=== PATIENT | female | born 1945 | race Caucasian/White ===

== ENCOUNTER 2017-10-22 16:18 | Observation (INO) ==
[2017-10-22] MEDS ORDERED: 0.9 % SODIUM CHLORIDE 1,000 ML IV ONE ×2 (16:36→18:13)
--- NOTE | 2017-10-22 16:40 | Emergency Department Note ---
Weakness HPI - General Chief complaint: Weakness Stated complaint: body aches, weak Time Seen by Provider: 10/22/17 16:20 Source: patient Mode of arrival: ambulatory Limitations: no limitations - History of Present Illness HPI Narrative: 72-year-old female presents with worsening weakness. She is being treated for urinary tract infection and pneumonia with Levaquin. She was seen at [facility] on 10/19. She had been having fevers of 103 previously and states that the fevers are gone. She states that she has worsening weakness but is able to get up and out of bed today. She is trying to drink fluids but feels dry because her mouth is very dry. She also has not been taking her medications because she has been sick and had a lower blood pressure today. She was told by her PCP to be seen. She denies any chest pain but feels like she cannot get a deep breath. She did not know she had pneumonia until she had a CT of her abdomen which picked it up. She denies any abdominal pain or urinary symptoms at this time. She states her only symptom that she had was a fever. She states she gets winded when trying to walk from point a to B. She is not eating much and she is diabetic but her blood sugars have been running in the 130s. She has not been taking her metformin. She vomited once prior to going to [facility] but has not vomited since. No diarrhea. She states the medication is her stomach ache. - Related Data Home Medications Medication Instructions Recorded Confirmed aspirin 81 mg tablet,delayed 81 mg PO QDAY 06/28/15 10/22/17 release hydroxychloroquine 200 mg tablet 400 mg PO HS tab 06/28/15 10/22/17 magnesium oxide 400 mg tablet 400 mg PO HS tab 06/28/15 10/22/17 metformin 500 mg tablet 500 mg PO BID 07/20/17 10/22/17 Atorvastatin [Lipitor] 5 mg PO HS 10/12/17 10/22/17 Potassium Chloride [K-Tab ER] 20 meq PO HS 10/12/17 10/22/17 cycloSPORINE [Restasis] 1 each OU BID 10/12/17 10/22/17 Blood Sugar Diagnostic [Contour] 0 unit MISC .MEDSUPPLY 10/22/17 10/22/17 Blood-Glucose Meter [Contour] 0 unit MISC .MEDSUPPLY 10/22/17 10/22/17 Previous Rx's Medication Instructions Recorded carvedilol 6.25 mg tablet 6.25 mg PO BID #180 tab 12/16/16 sertraline 50 mg tablet 50 mg PO DAILY #90 tab 12/16/16 omeprazole 20 mg capsule,delayed 20 mg PO QDAY #90 cap 05/05/17 release alprazolam 1 mg tablet 0.5 mg PO QHS #45 tab 07/14/17 hydrochlorothiazide 50 mg tablet 25 mg PO QDAY #1 tab 10/04/17 losartan 100 mg tablet 100 mg PO QDAY #90 tab 10/04/17 levofloxacin 750 mg tablet 750 mg PO Q24H 5 Days #5 tab 10/19/17 Allergies Allergy/AdvReac Type Severity Reaction Status Date / Time Sulfa (Sulfonamide AdvReac Mild Nausea/Vomi Verified 10/22/17 16:19 Antibiotics) ting Review of Systems All systems ED: reviewed and negative except as stated. Past Medical History - Past Medical History Medical history: Reports: arthritis, DM, hypertension Psychiatric history: Reports: no psych history [employer]IST history: Reports: non-contributory Surgical history ED: Reports: non-contributory Family history: Reports: non-contributory - Social History smoking status: Never smoker Physical Exam Limitations: no limitations General appearance: alert, in no apparent distress Head: atraumatic Eye: Present: normal appearance. Absent: conjunctival injection Neck: Present: normal inspection, full ROM Chest: Present: normal inspection, symmetric chest wall rise Respiratory: Present: other (Mild decreased right middle and lower lobe). Absent: wheezes Cardiovascular: Present: regular rate, normal heart sounds Abdominal: Present: soft, normal bowel sounds. Absent: tenderness Extremities: Present: normal inspection, full ROM Neurological: Present: alert, oriented X3 Psychiatric: Present: normal affect, normal mood Skin: Present: warm, dry, intact Course Vital Signs Temperature 98.0 F 10/22/17 16:19 Pulse Rate 80 10/22/17 16:19 Respiratory Rate 16 10/22/17 16:19 Blood Pressure 126/73 10/22/17 16:19 Pulse Oximetry (%) 98 10/22/17 16:19 Temperature 98.0 F 10/22/17 16:19 Pulse Rate 66 10/22/17 19:31 Respiratory Rate 18 10/22/17 19:31 Blood Pressure 151/64 10/22/17 19:31 Pulse Oximetry (%) 98 10/22/17 19:31 Weakness - MDM Narrative Medical decision making narrative: Potassium 2.9. She is been given 20 mEq potassium p.o. and 20 mEq IV. - Lab Data Lab results reviewed: Yes I reviewed the patient's lab results. Result diagrams: 10/22/17 16:43 10/22/17 16:43 Lab Results 10/22/17 10/22/17 10/22/17 Range/Units 16:43 16:43 16:43 WBC 5.9 (4.5-11.0) K/mcL RBC 3.94 L (4.00-5.20) M/mcL Hgb 11.5 L (12.0-15.0) g/dL Hct 33.8 L (36.0-48.0) % MCV 85.6 (80.0-100.0) fL MCH 29.2 (26.0-34.0) pg MCHC 34.1 (31.0-36.0) g/dL RDW 13.2 (11.5-14.5) % Plt Count 292 (140-440) K/mcL MPV 9.0 (7.4-10.4) fL Total Counted 100 Seg Neutrophils % 61 (38-78) % Band Neutrophils % 4 (0-10) % Lymphocytes % 23 (15-49) % Monocytes % (Manual) 10 (1-12) % Eosinophils % (Manual) 2 (0-7) % Platelet Estimate Normal (NORMAL) RBC Morphology Normal (NORMAL) VBG Lactic Acid 1.6 (0.5-2.2) mmol/L Sodium 133 (133-145) mmol/L Potassium 2.9 L* (3.3-5.1) mmol/L Chloride 94 L (96-108) mmol/L Carbon Dioxide 23 (22-30) mmol/L Anion Gap 16.0 (8-16) BUN 13 (8-23) mg/dl Creatinine 0.9 (0.6-1.1) mg/dl GFR Calculation 65 Glucose 147 H (70-105) mg/dL Calcium 9.2 (8.6-10.4) mg/dl Total Bilirubin 0.3 (0.0-1.0) mg/dL AST 76 H (0-37) U/l ALT 92 H (0-40) U/l Alkaline Phosphatase 92 (39-117) U/L Total Protein 6.9 (5.9-8.4) gm/dL Albumin 3.4 (3.2-5.2) gm/dL Globulin 3.5 (2.2-3.7) gm/dL Albumin/Globulin Ratio 1.0 (1.0-2.3) Procalcitonin (<0.10) ng/mL Urine Color Urine Appearance Urine pH (5.0-9.0) Ur Specific Alpine (1.000-1.035) Urine Protein (NEG) mg/dL Urine Glucose (UA) (NEG) mg/dL Urine Ketones (NEG) mg/dL Urine Occult Blood (<0.03) mg/dL Urine Nitrate (NEG) Urine Bilirubin (NEG) mg/dL Urine Urobilinogen (NEG) mg/dL Ur Leukocyte Esterase (NEG) /uL Urine RBC (0-1) /hpf Urine WBC (0-4) /hpf Ur Squamous Epith Cells (0-4) /hpf Urine Bacteria (0) /hpf Ur Culture Indicated? 10/22/17 10/22/17 Range/Units 16:43 17:45 WBC (4.5-11.0) K/mcL RBC (4.00-5.20) M/mcL Hgb (12.0-15.0) g/dL Hct (36.0-48.0) % MCV (80.0-100.0) fL MCH (26.0-34.0) pg MCHC (31.0-36.0) g/dL RDW (11.5-14.5) % Plt Count (140-440) K/mcL MPV (7.4-10.4) fL Total Counted Seg Neutrophils % (38-78) % Band Neutrophils % (0-10) % Lymphocytes % (15-49) % Monocytes % (Manual) (1-12) % Eosinophils % (Manual) (0-7) % Platelet Estimate (NORMAL) RBC Morphology (NORMAL) VBG Lactic Acid (0.5-2.2) mmol/L Sodium (133-145) mmol/L Potassium (3.3-5.1) mmol/L Chloride (96-108) mmol/L Carbon Dioxide (22-30) mmol/L Anion Gap (8-16) BUN (8-23) mg/dl Creatinine (0.6-1.1) mg/dl GFR Calculation Glucose (70-105) mg/dL Calcium (8.6-10.4) mg/dl Total Bilirubin (0.0-1.0) mg/dL AST (0-37) U/l ALT (0-40) U/l Alkaline Phosphatase (39-117) U/L Total Protein (5.9-8.4) gm/dL Albumin (3.2-5.2) gm/dL Globulin (2.2-3.7) gm/dL Albumin/Globulin Ratio (1.0-2.3) Procalcitonin < 0.10 (<0.10) ng/mL Urine Color Yellow Urine Appearance Hazy Urine pH 6.0 (5.0-9.0) Ur Specific Alpine 1.009 (1.000-1.035) Urine Protein Neg (NEG) mg/dL Urine Glucose (UA) Negative (NEG) mg/dL Urine Ketones Neg (NEG) mg/dL Urine Occult Blood 0.03 A (<0.03) mg/dL Urine Nitrate Neg (NEG) Urine Bilirubin Neg (NEG) mg/dL Urine Urobilinogen Neg (NEG) mg/dL Ur Leukocyte Esterase Neg (NEG) /uL Urine RBC 2 H (0-1) /hpf Urine WBC 0 (0-4) /hpf Ur Squamous Epith Cells 3 (0-4) /hpf Urine Bacteria Few A (0) /hpf Ur Culture Indicated? Yes - Radiology Data Radiology results reviewed: Yes I reviewed the patient's radiology results. Possible small infiltrate developing in the posterior right lower lobe. Small hiatal hernia Disposition Pt seen by [facility]/PA only: Yes Clinical Impression: Hypokalemia, Weakness Disposition: Xfer As Outpt/Obs ([facility]) Condition: Fair
--- NOTE | 2017-10-22 17:20 | XRay Report ---
CLINICAL INFORMATION: Cough COMPARISON: 01/11/2006 FINDINGS: Small hiatal hernia is noted. The heart size, the remaining mediastinum and pulmonary vessels are unremarkable. There may be a small infiltrate developing in the posterior right lower lobe There are no effusions. The bones and soft tissues are within normal limits. IMPRESSION: Possible small infiltrate developing in the posterior right lower lobe. Small hiatal hernia Interpreted and Authenticated by: Antonio Lua 10/22/17
[2017-10-22 17:27] LABS: Mean Cell Volume 85.6 fL (80.0-100.0); Mean Corpuscular HGB Conc 34.1 g/dL (31.0-36.0); Mean Corpuscular Hemoglobin 29.2 pg (26.0-34.0); Platelet Count 292 K/mcL (140-440); RBC 3.94 M/mcL (4.00-5.20); Red Cell Distribution Width 13.2 % (11.5-14.5)
[2017-10-22 17:43] LABS: ALT/SGPT 92 U/l (0-40); Albumin 3.4 gm/dL (3.2-5.2); Alkaline Phosphatase 92 U/L (39-117); Blood Urea Nitrogen 13 mg/dl (8-23)
[2017-10-22] MEDS ORDERED: POTASSIUM CHLORIDE 20 MEQ in DEXTROSE 5% IN WATER 250 ML IV ONE (17:46)
[2017-10-22] MEDS ORDERED: POTASSIUM CHLORIDE 20 MEQ TABLET PO ONE (17:47)
[2017-10-22 17:52] LABS: Band Neutrophils % 4 % (0-10); Eosinophils % (Manual) 2 % (0-7); Lymphocytes % 23 % (15-49); Monocytes % (Manual) 10 % (1-12); Platelet Estimate NORMAL (NORMAL); RBC Morphology NORMAL (NORMAL); Segmented Neutrophils % 61 % (38-78)
[2017-10-22] MEDS ORDERED: NITROGLYCERIN 0.4 MG TAB.SUBL SL PRN (18:53)
[2017-10-22 18:57] LABS: Appearance,Urine HAZY; Bacteria,Urine FEW /hpf (0); Bilirubin,Urine NEG (NEG); Color,Urine YELLOW; Glucose,Urine (UA) NEGATIVE (NEG); Leukocyte Esterase,Urine NEG /uL (NEG); Protein,Urine NEG (NEG); Specific Gravity,Urine 1.009 (1.000-1.035); Urine Blood 0.03 mg/dL (<0.03); Urine RBC 2 /hpf (0-1); Urine Squamous Epithelial Cell 3 /hpf (0-4); Urine WBC 0 /hpf (0-4); Urobilinogen,Urine NEG (NEG)
--- NOTE | 2017-10-22 19:00 | Internal Med History&Physical ---
Medical - H&P: HPI Patient information: Note initiated : 10/22/17 at 6:55 pm Service Date, if different from initiated Date: [] Patient: Kenyetta Yuong a 72 y/o F admitted on for body aches, weak. Chief Complaint: [] History of present illness: Ms. Young is a 72 year old F with multiple medical issues presents to the ER today for evaluation of weakness The patient notes she has not been feeling well for over a week now, she notes she came back from [place] and was seen by her ortho surgeon, and soon afterwards felt sick. she admits to having fever with a temperature of 103, chills sweating, weakness malaise, fatigue. She also had some nausea. She admits to having decreased appetite and not have eaten much for the last 1 week. She has not taken oral medications for approximately a week. She thought that she had the flu and therefore had been taking as needed Tylenol and trying to stay hydrated as much as possible but does not think she took in enough fluids. The patient was seen in the urgent care clinic twice, during the second visit I believe on 19 October she was diagnosed with a urinary tract infection, she also had a stat chest abdomen and pelvis CT done which showed that she had right lower lobe pneumonia. She was started on levofloxacin which she started taking the day after. The patient's condition improved after she took antibiotics, her fever subsided however she still felt quite weak. Given her weakness and the fact that she had not taken her medications for a week she called her primary care physician who advised her to come to the ER for further evaluation. In the emergency room patient was hemodynamically stable and afebrile however her labs showed white count of 5.9, hemoglobin 11.5, platelets 292. Sodium 133 , potassium 2.9, chloride 94, bicarbonate 23, BUN 13 creatinine 0.9, glucose 147 , lactic acid was 1.6. Patient had AST of 76 and ALT of 92, alk phos 92, bilirubin 0.3. Pro-calcitonin less than 0.10. Given her weakness and hypokalemia patient was admitted to the hospital for further management. The patient complained about malaise weakness fatigue fever nausea some episodes of vomiting no blood, she had some diarrhea a few days ago which he attributes to IBS-like GI symptoms. She denied any cough, she has chronic GERD- like symptoms, she denied any urinary complaints. She has joint pains from osteoarthritis. Her ua from 10/19 shows ecoli stephenson sensitive CT abdomen pelivs 10/19, neg acute pathology, no diveritculitis but early features could be missed, hiatal hernia. All systems: reviewed and no additional remarkable complaints except as stated ( As per HPI rest negative) Medical - H&P: H Medical history: Medical History (Last Reviewed 10/15/17 @ 13:34 by Kassie Juan DO) Chronic kidney disease, stage III (moderate) (Chronic) Left hip pain (Chronic) Metabolic Syndrome X (Chronic) Obesity (Chronic) Cervical disc disorder, unspecified, mid-cervical region (Chronic) Primary osteoarthritis of hand (Chronic) Spondylosis without myelopathy or radiculopathy, lumbar region (Chronic) Impingement syndrome of right shoulder (Chronic) Dysphagia (Chronic) Vitreous degeneration (Chronic) Cyn vaginitis (Resolved 01/27/13) Urinary urgency (Chronic 09/14/12) Stress reaction (Chronic 08/14/12) Sicca syndrome, Sjogren's (Chronic) Sedimentation rate elevation (Chronic 08/09/13) Rotator cuff syndrome of shoulder and allied disorders (Chronic) Polyarthropathy, inflammatory (Chronic) Pancreatitis (Resolved) Osteopenia (Chronic) Osteoarthritis cervical spine (Chronic) Osteoarthritis (Chronic) Nuclear sclerosis (Chronic) Myoclonus (Chronic) Metabolic syndrome X (Chronic) Keratoconjunctivitis sicca not specified as Sjogren's (Chronic) Irritable bowel syndrome (Chronic) Insomnia (Chronic) Hypertension, essential (Chronic) Hyperlipidemia (Chronic) Hyperkalemia (Chronic) Hiatal hernia (Chronic) Greater trochanteric bursitis of both hips (Chronic 08/14/14) Gastroesophageal reflux (Chronic) Gastroenteritis (Chronic 04/04/14) Stress due to family tension (Chronic) Dupuytrens contracture (Chronic) Diverticulitis of colon (Chronic) Acquired dilation of common bile duct (Chronic) DM type 2 (diabetes mellitus, type 2) (Chronic) Depression (Chronic 07/28/13) Dehydration (Resolved 04/04/14) Degenerative joint disease (Chronic) Degeneration, intervertebral disc, thoracolumbar (Chronic) Colon polyp (Chronic 04/27/14) Chronic kidney disease, stage III (moderate) (Chronic) Blepharitis (Resolved) Arthropathy, unspecified (Chronic) Anemia (Chronic 03/15/14) Acute frontal sinusitis (Resolved 08/14/14) Surgical history: Past Surgical History (Last Reviewed 07/20/17 @ 15:09 by Angela Jacobs MD) Hx of tubal ligation (Resolved) Hx of ovarian cystectomy (Resolved) Hx of esophagogastroduodenoscopy (Resolved 03/20/14) Hx of dilation and curettage (Resolved) Hx of colonoscopy (Resolved 04/27/14) Hx of cholecystectomy (Resolved) Hx of blepharoplasty (Resolved) Status post surgery (Resolved 02/20/13) Hx of appendectomy (Resolved) History of cataract surgery (Resolved ~06/2017) Pertinent family history: Family History (Last Reviewed 07/20/17 @ 15:09 by Angela Jacobs MD) Grandmother-paternal Acute myocardial infarction Father Coronary artery disease Other Diabetes mellitus Medical - H&P: Meds Home Medications Medication Instructions Recorded Confirmed Type aspirin 81 mg tablet,delayed 81 mg PO QDAY 06/28/15 10/15/17 History release coenzyme Q10 300 mg capsule 300 mg PO QDAY 06/28/15 10/15/17 History hydroxychloroquine 200 mg tablet 400 mg PO HS tab 06/28/15 10/15/17 History magnesium oxide 400 mg tablet 400 mg PO HS tab 06/28/15 10/15/17 History blood sugar diagnostic strips See Dose Instructions .ROUTE 06/09/16 10/15/17 Rx .MEDSUPPLY #100 each blood-glucose meter kit See Dose Instructions .ROUTE 06/09/16 10/15/17 Rx .MEDSUPPLY #1 each carvedilol 6.25 mg tablet 6.25 mg PO BID #180 tab 12/16/16 10/15/17 Rx sertraline 50 mg tablet 50 mg PO DAILY #90 tab 12/16/16 10/15/17 Rx omeprazole 20 mg capsule,delayed 20 mg PO QDAY #90 cap 05/05/17 10/15/17 Rx release alprazolam 1 mg tablet 0.5 mg PO QHS #45 tab 07/14/17 10/15/17 Rx metformin 500 mg tablet 500 mg PO BID 07/20/17 10/15/17 History hydrochlorothiazide 50 mg tablet 25 mg PO QDAY #1 tab 10/04/17 10/15/17 Rx losartan 100 mg tablet 100 mg PO QDAY #90 tab 10/04/17 10/15/17 Rx Atorvastatin [Lipitor] 5 mg PO HS 10/12/17 10/15/17 History Multivit-Min/Iron/Folic/[id number] 2 each PO DAILY 10/12/17 10/15/17 History [Hair, Skin and Nails Tablet] Potassium Chloride [K-Tab ER] 20 meq PO HS 10/12/17 10/15/17 History cycloSPORINE [Restasis] 1 each OU BID 10/12/17 10/15/17 History levofloxacin 750 mg tablet 750 mg PO Q24H 5 Days #5 tab 10/19/17 Rx Allergies Allergy/AdvReac Type Severity Reaction Status Date / Time Sulfa (Sulfonamide AdvReac Mild Nausea/Vomi Verified 10/22/17 16:19 Antibiotics) ting Medical - H&P: Exam - Constitutional Vitals: Temp Pulse Resp BP Pulse Ox 98.0 F 66 20 157/66 99 10/22/17 16:19 10/22/17 18:46 10/22/17 18:46 10/22/17 18:46 10/22/17 18:46 Exam: GENERAL: The patient is a well-developed, well-nourished in no apparent distress. Is alert and oriented x3. VITAL SIGNS: Reviewed and as noted elsewhere. HEENT: Head is normocephalic and atraumatic. Extraocular muscles are intact. Pupils are equal, round, and reactive to light. Nares appeared normal. Mouth appears any without lesions. Mucous membranes are moist. NECK: Normal to inspection, Supple, No lymphadenopathy or thyromegaly. LUNGS: Air entry equal on both sides, no wheezing, right basilar crackles noted. No accessory muscles of respiration HEART: Regular rate and rhythm normal, S1 and S2 heard, no Gallop, S3 or Rub Noted, No Gross murmur heard. ABDOMEN: Soft, nontender, and nondistended. Positive bowel sounds. No hepatosplenomegaly was noted. EXTREMITIES: No cyanosis, clubbing, rash, lesions or edema. NEUROLOGIC: Cranial nerves II through XII are grossly intact. Motor and Sensory System Grossly Intact PSYCHIATRIC: Normal affect, Normal Mood. Appropriate Behavior. SKIN: No ulceration or wounds noted, No jaundice, No rash noted. Medical - H&P: Reslt - Labs CBC & Chem 7: 10/22/17 16:43 10/22/17 16:43 Labs: Short CBC 10/22/17 Range/Units 16:43 WBC 5.9 (4.5-11.0) K/mcL Hgb 11.5 L (12.0-15.0) g/dL Hct 33.8 L (36.0-48.0) % Plt Count 292 (140-440) K/mcL BMP 10/22/17 16:43 Sodium 133 Potassium 2.9 L* Chloride 94 L Carbon Dioxide 23 BUN 13 Creatinine 0.9 Glucose 147 H Calcium 9.2 Liver Function 10/22/17 Range/Units 16:43 Total Bilirubin 0.3 (0.0-1.0) mg/dL AST 76 H (0-37) U/l ALT 92 H (0-40) U/l Alkaline Phosphatase 92 (39-117) U/L Albumin 3.4 (3.2-5.2) gm/dL Medical - H&P: A/P - Narrative A/P Narrative: A/P Pneumonia, CAP, ? aspirational given hiatal hernia Urinary tract infection, Ecoli, pansensitive Hypokalemia Diabetes Hypertension sjogren syndrome depression Osteoarthritis Plan ADmit to tele, obs status, anticipate d/c in 2 days IV levofloxacin to continue for UTi and pna, pt clinically seems to be improving hypokalemia, likely due to poor intake, did not take hctz it seems, previous K levels were ok, check Mg, replace oral and IV, recheck in AM SSI for glucose control resume home meds as appropriate when verified. DVT hep sq Diet Diabetic, Full code. Social History - Social History household members: spouse housing: house lives independently: Yes marital status: education level: college occupational status: employed occupation: teacher - Tobacco smoking status: Never smoker - Alcohol alcohol intake frequency: holiday/special occasion only
[2017-10-22] MEDS ORDERED: HYDROcodone/APAP 5/325MG TABLET PO PRN (19:43)
[2017-10-22] MEDS ORDERED: DEXTROSE 31 GM ORAL.SUSP PO PRN (19:43)
[2017-10-22] MEDS ORDERED: DEXTROSE 50% 50 ML VIAL IV PRN (19:43)
[2017-10-22] MEDS ORDERED: POTASSIUM CHLORIDE 40 MEQ in DEXTROSE 5% IN WATER 500 ML IV ONE (19:43)
[2017-10-22] MEDS ORDERED: ACETAMINOPHEN 325 MG TABLET PO PRN (19:43)
[2017-10-22] MEDS ORDERED: ONDANSETRON 4 MG/2 ML VIAL IV PRN (19:43)
[2017-10-22] MEDS ORDERED: LEVOFLOXACIN 750 MG/150 ML BAG IV SCH (19:43)
[2017-10-22] MEDS: LACTATED RINGERS 1,000 ML IV SCH (20:41)
[2017-10-22] MEDS ORDERED: POTASSIUM CHLORIDE 20 MEQ/10 ML VIAL IV ONE (21:32)
[2017-10-22] MEDS: INSULIN LISPRO 1 UNIT/0.01 ML UNIT SQ SCH (22:31)
[2017-10-22] MEDS: 0.9 % SODIUM CHLORIDE 10 ML SYRINGE IV SCH (22:32)
[2017-10-22] MEDS: HEPARIN 5,000 UNIT/ML VIAL SQ SCH (23:01)
[2017-10-22] MEDS: FAMOTIDINE/PF 20 MG/2 ML VIAL IV SCH (23:01)
[2017-10-23 05:52] LABS: Basophils # (Auto) 0 K/mcL (0.0-0.3); Basophils % (Auto) 0.3 % (0.0-2.0); Eosinophils # (Auto) 0.1 K/mcL (0.0-0.7); Eosinophils % (Auto) 1.8 % (0.0-7.0); Granulocytes % (Auto) 67.6 % (38.0-78.0); Lymphocytes # (Auto) 0.9 K/mcL (1.5-4.8); Lymphocytes % (Auto) 17.7 % (15.5-49.0); Mean Cell Volume 86.4 fL (80.0-100.0); Mean Corpuscular HGB Conc 34.1 g/dL (31.0-36.0); Mean Corpuscular Hemoglobin 29.4 pg (26.0-34.0); Monocytes # (Auto) 0.7 K/mcL (0.1-0.9); Monocytes % (Auto) 12.6 % (1.0-12.0); Platelet Count 265 K/mcL (140-440); RBC 3.45 M/mcL (4.00-5.20); Red Cell Distribution Width 12.8 % (11.5-14.5)
[2017-10-23 06:09] LABS: ALT/SGPT 72 U/l (0-40); Albumin 2.9 gm/dL (3.2-5.2); Alkaline Phosphatase 75 U/L (39-117); Bilirubin,Direct < 0.2 mg/dL (0.0-0.3); Blood Urea Nitrogen 9 mg/dl (8-23); Gamma Glutamyl Transpeptidase 25 U/L (5-36); Uric Acid 4.9 mg/dL (2.5-8.0)
[2017-10-23] MEDS: INSULIN LISPRO 1 UNIT/0.01 ML UNIT SQ SCH ×2 (08:03→11:56)
[2017-10-23] MEDS: FAMOTIDINE/PF 20 MG/2 ML VIAL IV SCH (08:05)
[2017-10-23] MEDS: HEPARIN 5,000 UNIT/ML VIAL SQ SCH (08:06)
[2017-10-23] MEDS: 0.9 % SODIUM CHLORIDE 10 ML SYRINGE IV SCH (08:06)
--- NOTE | 2017-10-23 11:03 | Discharge Summary ---
Medical - DS: Prov Patient information: Note initiated : 10/23/17 at 10:59 am Service Date, if different from initiated Date: [] Patient: Kenyetta Young 72 y/o F admitted on 10/22/17 for body aches, weak. Chief Complaint: [] Date of admission: 10/22/17 19:40 Discharge date: 10/23/17 Primary care physician: Nicholas Mayfield Admitting clinician: Beau Taylor Consults: 10/22/17 18:19 Consult to Physician [CONS] Stat Comment: Consulting Provider: Beau Taylor Reason For Exam: Physician to Consult Discharging clinician: Beau Taylor Medical - DS: Meds - Discharge Medications Active and Home Medications: Home Medications aspirin 81 mg tablet,delayed release 81 mg PO QDAY 06/28/15 [History Confirmed 10/22/17 Last Taken 10/10/17] hydroxychloroquine 200 mg tablet 400 mg PO HS tab 06/28/15 [History Confirmed 10/22/17 Last Taken Unknown] magnesium oxide 400 mg tablet 400 mg PO HS tab 06/28/15 [History Confirmed 06/10 Last Taken 10/03/15 08:00] carvedilol 6.25 mg tablet 6.25 mg PO BID #180 tab 12/16/16 [Rx Confirmed Last Taken Unknown] sertraline 50 mg tablet 50 mg PO DAILY #90 tab 12/16/16 [Rx Confirmed 10/22/17 Last Taken Unknown] omeprazole 20 mg capsule,delayed release 20 mg PO QDAY #90 cap 05/05/17 [Rx Confirmed 10/22/17 Last Taken Unknown] alprazolam 1 mg tablet 0.5 mg PO QHS #45 tab 07/14/17 [Rx Confirmed 10/22/17 Last Taken Unknown] metformin 500 mg tablet 500 mg PO BID 07/20/17 [History Confirmed 10/22/17 Last Taken Unknown] hydrochlorothiazide 50 mg tablet 25 mg PO QDAY #1 tab 10/04/17 [Rx Confirmed 06/10 Last Taken Unknown] losartan 100 mg tablet 100 mg PO QDAY #90 tab 10/04/17 [Rx Confirmed 10/22/17 Last Taken Unknown] Atorvastatin [Lipitor] 5 mg PO HS 10/12/17 [History Confirmed 10/22/17 Last Taken Unknown] Potassium Chloride [K-Tab ER] 20 meq PO HS 10/12/17 [History Confirmed 10/22/17 Last Taken Unknown] cycloSPORINE [Restasis] 1 each OU BID 10/12/17 [History Confirmed 10/22/17 Last Taken Unknown] levofloxacin 750 mg tablet 750 mg PO Q24H 5 Days #5 tab 10/19/17 [Rx Confirmed 10/22/17 Last Taken Unknown] Blood Sugar Diagnostic [Contour] 0 unit MISC .MEDSUPPLY 10/22/17 [History Confirmed 10/22/17 Last Taken Unknown] Blood-Glucose Meter [Contour] 0 unit MISC .MEDSUPPLY 10/22/17 [History Confirmed 10/22/17 Last Taken Unknown] Medical - DS: Hosp Hospital course: Ms. Young is a 72 year old F with multiple medical issues admitted to the hospital for weakness, pna, uti and hypokalemia. The patient notes she has not been feeling well for over a week now, she notes she came back from [place] and was seen by her ortho surgeon, and soon afterwards felt sick. she admits to having fever with a temperature of 103, chills sweating, weakness malaise, fatigue. She also had some nausea. She admits to having decreased appetite and not have eaten much for the last 1 week. She has not taken oral medications for approximately a week. She thought that she had the flu and therefore had been taking as needed Tylenol and trying to stay hydrated as much as possible but does not think she took in enough fluids. The patient was seen in the urgent care clinic twice, during the second visit I believe on 19 October she was diagnosed with a urinary tract infection, she also had a stat chest abdomen and pelvis CT done which showed that she had right lower lobe pneumonia. She was started on levofloxacin which she started taking the day after. The patient's condition improved after she took antibiotics, her fever subsided however she still felt quite weak. Given her weakness and the fact that she had not taken her medications for a week she called her primary care physician who advised her to come to the ER for further evaluation. In the emergency room patient was hemodynamically stable and afebrile however her labs showed white count of 5.9, hemoglobin 11.5, platelets 292. Sodium 133 , potassium 2.9, chloride 94, bicarbonate 23, BUN 13 creatinine 0.9, glucose 147 , lactic acid was 1.6. Patient had AST of 76 and ALT of 92, alk phos 92, bilirubin 0.3. Pro-calcitonin less than 0.10. Given her weakness and hypokalemia patient was admitted to the hospital for further management. The patient complained about malaise weakness fatigue fever nausea some episodes of vomiting no blood, she had some diarrhea a few days ago which he attributes to IBS-like GI symptoms. She denied any cough, she has chronic GERD- like symptoms, she denied any urinary complaints. She has joint pains from osteoarthritis. Her ua from 10/19 shows ecoli stephenson sensitive The patient was observed overnight, IV and oral K given, the patients K was 3.8 this AM, she was feeling much better, her labs were stable, and left trending down. WBC normal, she remained afebrile She is able to ambulate by her self without any support I have advised her to complete the course of antibiotic which she has left, I think she has another 3 pills of levofloxacin remaining. This should adequately cover her for the pna as well as Ecoli UTI. The patient low K is attributed to diarrhea and poor oral intake, she is on KCL supplements, but was not taking them. She is also on a high dose of hctz, but her previous labs on this medication have shown normal K therefore I have not asked her to stop this medication. She has been advised to follow up with PCP in 1 week and recheck her BMP a day prior to her pcp appointment. Discharge diagnosis: PNA, Hypokalemia - Time Spent with Patient Total time spent providing and/or coordinating discharge services: Less than 30 minutes Medical - DS: Exam - Constitutional Vitals: Vital Signs Temp Pulse Resp BP BP Pulse Ox 10/23/17 07:00 98.3 F 16 143/62 99 10/23/17 03:40 98.1 F 20 136/90 98 10/23/17 00:33 97.7 F 18 132/66 99 10/22/17 21:57 72 16 99 10/22/17 19:50 98.1 F 79 20 151/64 99 10/22/17 19:48 98.0 F 66 18 151/64 98 10/22/17 19:31 66 18 151/64 98 10/22/17 19:25 68 21 150/62 99 10/22/17 19:15 67 18 99 10/22/17 18:46 66 20 157/66 99 10/22/17 18:31 65 16 154/63 97 10/22/17 18:16 64 18 156/62 99 10/22/17 18:01 65 15 163/66 99 10/22/17 17:55 16 158/66 100 10/22/17 16:19 98.0 F 80 16 126/73 98 Intake and Output 10/22/17 10/23/17 10/23/17 21:59 05:59 13:59 Intake Total 1730 / 1730 1050 / 1050 1400 / 1400 Output Total 1100 / 1100 900 / 900 Balance 1730 / 1730 -50 / -50 500 / 500 Intake: IV 1730 / 1730 700 / 700 1000 / 1000 Sodium Chloride 0.9% 1,000 ml @ 1500 / 1500 Wide Open IV BOLUS ONE Rx#: [id number] Lactated Ringers 1,000 ml @ 75 1000 / 1000 mls/hr IV .[id number] SHAKA Rx#: [id number] Potassium Chloride 20 Meq In 230 / 230 Dextrose 5% in Water 250 ml @ 130 mls/hr IV ONCE ONE Rx#: [id number] Oral 400 / 400 GI Tube Flush 350 / 350 Output: Void Amount 1100 / 1100 900 / 900 Other: Meal egg salad sandwich Breakfast Percent of Meal Consumed 25% 25% Feeding Ability Independent # Voids 1 Weight 155 lb Additional comments: Constitutional; Afebrile, cooperative, alert, not in distress. Eyes- No icterus, , No periorbital swelling Ears- Ext ear normal, hearing normal to conversation. Neck- Midline trachea, supple Respiratory system: Air Entry equal on both sides, No crackles or wheezing, no rhonchi. CVS- Rate rhythm regular, S1,S2 heard, no gallop, no rub. Abdomen- Soft nontender abdomen, no organomegaly, no tenderness, no guarding or rigidity, BRAKES INSPECTOR- AOOx3, moving all extremities, no gross focal deficit noted. Medical - DS: Data Procedures and tests throughout hospitalization: Constitutional; Afebrile, cooperative, alert, not in distress. Eyes- No icterus, , No periorbital swelling Ears- Ext ear normal, hearing normal to conversation. Neck- Midline trachea, supple Respiratory system: Air Entry equal on both sides, No crackles or wheezing, no rhonchi. CVS- Rate rhythm regular, S1,S2 heard, no gallop, no rub. Abdomen- Soft nontender abdomen, no organomegaly, no tenderness, no guarding or rigidity, BRAKES INSPECTOR- AOOx3, moving all extremities, no gross focal deficit noted. Labs on day of discharge: Labs from last 24 hours 10/23/17 10/23/17 10/22/17 03:30 03:30 17:45 WBC 5.2 RBC 3.45 L Hgb 10.2 L Hct 29.8 L MCV 86.4 MCH 29.4 MCHC 34.1 RDW 12.8 Plt Count 265 MPV 9.6 Gran % 67.6 Lymph % (Auto) 17.7 [place] % (Auto) 12.6 H Eos % (Auto) 1.8 Baso % (Auto) 0.3 Gran # 3.5 Lymph # (Auto) 0.9 L [place] # (Auto) 0.7 Eos # (Auto) 0.1 Baso # (Auto) 0 Total Counted Seg Neutrophils % Band Neutrophils % Lymphocytes % Monocytes % (Manual) Eosinophils % (Manual) Platelet Estimate RBC Morphology VBG Lactic Acid Sodium 140 Potassium 3.8 Chloride 106 Carbon Dioxide 22 Anion Gap 12.0 BUN 9 Creatinine 0.8 GFR Calculation 75 Glucose 172 H Uric Acid 4.9 Calcium 8.4 L Phosphorus 2.8 Magnesium 1.8 Total Bilirubin 0.2 Direct Bilirubin < 0.2 GGT 25 AST 52 H ALT 72 H Alkaline Phosphatase 75 Lactate Dehydrogenase 242 Total Protein 5.8 L Albumin 2.9 L Globulin 2.9 Albumin/Globulin Ratio 1.0 Triglycerides 101 Procalcitonin Urine Color Yellow Urine Appearance Hazy Urine pH 6.0 Ur Specific [place] 1.009 Urine Protein Neg Urine Glucose (UA) Negative Urine Ketones Neg Urine Occult Blood 0.03 A Urine Nitrate Neg Urine Bilirubin Neg Urine Urobilinogen Neg Ur Leukocyte Esterase Neg Urine RBC 2 H Urine WBC 0 Ur Squamous Epith Cells 3 Urine Bacteria Few A Ur Culture Indicated? Yes 10/22/17 10/22/17 10/22/17 16:43 16:43 16:43 WBC RBC Hgb Hct MCV MCH MCHC RDW Plt Count MPV Gran % Lymph % (Auto) [place] % (Auto) Eos % (Auto) Baso % (Auto) Gran # Lymph # (Auto) [place] # (Auto) Eos # (Auto) Baso # (Auto) Total Counted Seg Neutrophils % Band Neutrophils % Lymphocytes % Monocytes % (Manual) Eosinophils % (Manual) Platelet Estimate RBC Morphology VBG Lactic Acid 1.6 Sodium Potassium Chloride Carbon Dioxide Anion Gap BUN Creatinine GFR Calculation Glucose Uric Acid Calcium Phosphorus Magnesium 1.9 Total Bilirubin Direct Bilirubin GGT AST ALT Alkaline Phosphatase Lactate Dehydrogenase Total Protein Albumin Globulin Albumin/Globulin Ratio Triglycerides Procalcitonin < 0.10 Urine Color Urine Appearance Urine pH Ur Specific [place] Urine Protein Urine Glucose (UA) Urine Ketones Urine Occult Blood Urine Nitrate Urine Bilirubin Urine Urobilinogen Ur Leukocyte Esterase Urine RBC Urine WBC Ur Squamous Epith Cells Urine Bacteria Ur Culture Indicated? 10/22/17 10/22/17 16:43 16:43 WBC 5.9 RBC 3.94 L Hgb 11.5 L Hct 33.8 L MCV 85.6 MCH 29.2 MCHC 34.1 RDW 13.2 Plt Count 292 MPV 9.0 Gran % Lymph % (Auto) [place] % (Auto) Eos % (Auto) Baso % (Auto) Gran # Lymph # (Auto) [place] # (Auto) Eos # (Auto) Baso # (Auto) Total Counted 100 Seg Neutrophils % 61 Band Neutrophils % 4 Lymphocytes % 23 Monocytes % (Manual) 10 Eosinophils % (Manual) 2 Platelet Estimate Normal RBC Morphology Normal VBG Lactic Acid Sodium 133 Potassium 2.9 L* Chloride 94 L Carbon Dioxide 23 Anion Gap 16.0 BUN 13 Creatinine 0.9 GFR Calculation 65 Glucose 147 H Uric Acid Calcium 9.2 Phosphorus Magnesium Total Bilirubin 0.3 Direct Bilirubin GGT AST 76 H ALT 92 H Alkaline Phosphatase 92 Lactate Dehydrogenase Total Protein 6.9 Albumin 3.4 Globulin 3.5 Albumin/Globulin Ratio 1.0 Triglycerides Procalcitonin Urine Color Urine Appearance Urine pH Ur Specific [place] Urine Protein Urine Glucose (UA) Urine Ketones Urine Occult Blood Urine Nitrate Urine Bilirubin Urine Urobilinogen Ur Leukocyte Esterase Urine RBC Urine WBC Ur Squamous Epith Cells Urine Bacteria Ur Culture Indicated? Preliminary micro results at discharge 10/22/17 17:45 Urine Culture - Preliminary Urine - Clean Void [facility] Medical - DS: A/P - Patient/Caregiver Discharge Instructions Activity: increase activity as tolerated Diet: Consistent Carbohydrate Additional Instructions: Follow up with PCP in 1 week Check your Potassium level 1 day prior to your appointment, Your PCP can order these labs for you Please finish off the remaining prescription of antibiotic Take all your medications as prescribed by your PCP, no changes have been made Go to the ER if worsening symptoms, fever, chest pain, shortness of breath or any other acute concerns. - Follow up Plan Follow up with: Nicholas Mayfield MD [Primary Care Provider] - Disposition: Home, Self-Care Prognosis: Fair Rehab Potential: Fair I certify that the patient requires SNF services: No Medical - DS: Qual - VTE Deep Vein Thrombosis/Pulmonary Embolism Present on Admission: No
[2017-10-23] MEDS: LACTATED RINGERS 1,000 ML IV SCH (14:37)
== END 2017-10-23 13:00 | disposition home or self-care (01) ==
LOC: ED 16:18 → ICU 16:18
PROVIDERS: ADMIT Internal Medicine; ATTEND Internal Medicine

== ENCOUNTER 2018-01-25 09:01 | Inpatient (IN) ==
[~2018-01-25 09:01] MED LIST: PREGABALIN 75 MG CAPSULE PO SCH; ceFAZolin 1 GM VIAL IV SCH; oxyCODONE 10 MG TAB.ER.12H PO SCH
[2018-01-25] MEDS ORDERED: GLYCOPYRROLATE 0.2 MG/ML VIAL IV ONE (11:25)
[2018-01-25] MEDS ORDERED: PHENYLEPHRINE 10 MG/ML VIAL IV ONE (11:25)
[2018-01-25] MEDS ORDERED: TRANEXAMIC ACID 1,000 MG/10 ML VIAL IV ONE (11:25)
[2018-01-25] MEDS ORDERED: MIDAZOLAM 2 MG/2 ML VIAL IV ONE (11:25)
[2018-01-25] MEDS ORDERED: PROPOFOL 200 MG/20 ML VIAL IV ONE (11:25)
[2018-01-25] MEDS ORDERED: ONDANSETRON 4 MG/2 ML VIAL IV ONE (11:25)
[2018-01-25] MEDS ORDERED: LIDOCAINE HCL/PF 100 MG/5 ML SYRINGE IV ONE (11:25)
[2018-01-25] MEDS ORDERED: KETAMINE 100 MG/ML ML IV ONE (11:25)
[2018-01-25] MEDS ORDERED: GENTAMICIN SULFATE 800 MG/20 ML VIAL IR ONE (12:11)
--- NOTE | 2018-01-25 13:27 | Brief Operative Note ---
Date of procedure: 01/25/18 Pre-op diagnosis: left hip oa Post-op diagnosis: same Procedure: left total hip arthroplasty Grafts/Implants: Yes Anesthesia: GETA, spinal Findings: oa Complications: none Surgeon: Antonio Ovalle Machine I Engraver: Huyen Davila Estimated blood loss (cc): 200 Specimens Removed/Pathology: none sent Condition: stable Disposition: PACU
[2018-01-25] MEDS ORDERED: MAGNESIUM HYDROXIDE 30 ML ORAL.SUSP PO PRN (13:28)
[2018-01-25] MEDS ORDERED: ONDANSETRON 4 MG/2 ML VIAL IV PRN (13:28)
[2018-01-25] MEDS ORDERED: FLEETS ADULT ENEMA PR PRN (13:28)
[2018-01-25] MEDS ORDERED: POLYETHYLENE GLYCOL 3350 17 GM PACKET PO PRN (13:28)
[2018-01-25] MEDS ORDERED: BENZOCAINE/MENTHOL 1 LOZENGE PO PRN (13:28)
[2018-01-25] MEDS ORDERED: DEXTROSE 31 GM ORAL.SUSP PO PRN (13:28)
[2018-01-25] MEDS ORDERED: BISACODYL 10 MG SUPP.RECT PR PRN (13:28)
[2018-01-25] MEDS ORDERED: ONDANSETRON ODT 4 MG TABLET SL PRN (13:28)
[2018-01-25] MEDS ORDERED: TRANEXAMIC ACID 1,000 MG/10 ML VIAL IV SCH (13:28)
[2018-01-25] MEDS ORDERED: KETOROLAC 15 MG/ML VIAL IV PRN (13:28)
[2018-01-25] MEDS ORDERED: DEXTROSE 50% 50 ML VIAL IV PRN (13:28)
[2018-01-25] MEDS ORDERED: ACETAMINOPHEN 1,000 MG/100 ML BOTTLE IV ONE (13:32)
[2018-01-25] MEDS ORDERED: IPRATROPIUM/ALBUTEROL 3 ML AMPUL.NEB NEB PRN (13:32)
[2018-01-25] MEDS ORDERED: PROMETHAZINE 25 MG/ML VIAL IV PRN (13:32)
[2018-01-25] MEDS ORDERED: fentaNYL 100 MCG/2 ML VIAL IV PRN (13:32)
[2018-01-25] MEDS ORDERED: MEPERIDINE 25 MG/ML SYRINGE IV PRN (13:32)
[2018-01-25] MEDS ORDERED: METHOCARBAMOL 1,000 MG/10 ML VIAL IV PRN (13:32)
[2018-01-25] MEDS ORDERED: LACTATED RINGERS 1,000 ML IV SCH (13:45)
--- NOTE | 2018-01-25 14:12 | Operative Note ---
DATE OF OPERATION: 01/25/2018 PREOPERATIVE DIAGNOSIS: Degenerative joint disease, left hip. POSTOPERATIVE DIAGNOSIS: Degenerative joint disease, left hip. PROCEDURE: Left total hip arthroplasty. SURGEON: Shabnam Ovalle M.D. CRYSTAL ATTACHER SURGEON: Huyen Davila PA-C. ANESTHESIA: Spinal with LMA assist. ESTIMATED BLOOD LOSS: 200 mL. COMPLICATIONS: None noted. SPECIMENS REMOVED: None. DRAINS: None. IMPLANTS: DePuy Wagoner cancellous bone screw 6.5 x 25; DePuy Gription acetabular shell 52 mm diameter; DePuy [place] Hole Eliminator PS; DePuy Wagoner Altrx polyethylene acetabular liner, neutral 36 x 52; DePuy femoral stem Actis Duofix cementless size 4, high offset collar; DePuy Biolox delta ceramic femoral head +1.5, 36 mm diameter. INDICATIONS: The patient has had a longstanding history of worsening pain in the hip that has failed conservative treatment. Radiographs have confirmed advanced degenerative joint disease. After a long discussion about treatment options, the patient elected to proceed with a hip arthroplasty. The risks and benefits were discussed with the patient in detail including, but not limited to, the risks of anesthesia, problems with the heart or lungs related to anesthesia, infection, compromise or injury to the nerves and blood vessels, deep venous thrombosis, pulmonary embolism, pneumonia, continued pain after surgery, worsening pain or symptoms after surgery, swelling, loss of motion, instability, leg length discrepancy, and need for repeat surgery. DESCRIPTION OF PROCEDURE: The patient was seen in pre-anesthesia waiting room where all questions were answered and the correct side and site were identified and marked. The patient was then brought to the operating room and administered the anesthetic and given pre-operative antibiotics. A time-out was then called. The patient was placed in the lateral decubitus position with all prominences well-padded using the Vimal frame and the extremity was prepped and draped in the usual sterile fashion. Anesthesia gave the patient 1 gm of tranexamic acid via an intravenous route. A standard posterior approach was made. We dissected through the skin and subcutaneous tissue to the deep fascia. The deep fascia was split in line with the incision and a Charnley retractor was placed. We exposed, tagged, and incised the short external rotators and piriformis tendon and retracted them posteriorly to help protect the sciatic nerve which was palpated throughout the case. We then performed a T-capsulotomy and tagged the capsule edges. Prior to dislocating the hip, we set a length and offset gauge from a Steinmann pin in the iliac wing to a makayla on the greater trochanter. The hip was then dislocated and a femoral neck osteotomy was performed to the pre-surgical templated level off the lesser trochanter. The head was removed and sized. We next turned our attention to the acetabulum. Retractors were placed for optimal visualization. A complete labral excision was performed. The capsule was preserved for later closure. We began reaming using anatomic landmarks with the DePuy Wagoner acetabular system. We medialized the cup and reamed up to provide good fill and coverage of the trial. When the trial was stable and appropriately positioned with approximately 20 degrees of anteversion and 45 degrees of abduction, we impacted the DePuy Wagoner cup and placed a cancellous screw in the posterior-superior quadrant. Osteophytes were removed from around the shell. We placed the trial liner and turned our attention to the femur. We placed retractors for visualization, internally rotated the femur, and established intramedullary access. We broached using the DePuy Actis stem to a stable platform medial, lateral, and rotationally with the appropriate version. We then performed a calcar reaming off the broach. Trials were then placed and optimized for leg length and stability. We used the leg length and offset guide to confirm our trials. Best stability, length, and offset characteristics were obtained with these sizes. We removed all trials and impacted the polyethylene acetabular liner in a standard fashion after a thorough irrigation. We then impacted the femoral stem to its broached location and placed the head. Final reduction was performed. Again, good stability, leg length, and offset characteristics were noted. We irrigated with three liters of antibiotic saline. We closed the capsule with #2 FiberWire. We closed the fascia with a combination of #2 Stratafix and 0 Vicryl. We closed the subcutaneous tissue and skin in layers out to Dermabond on the skin. A sterile pressure dressing and abduction wedge was applied. All needle and sponge counts were correct. The patient was transferred to the recovery room in stable condition. [email or web address] Job ID: [id number] Doc ID: [id number] Shabnam Ovalle MD
[2018-01-25] MEDS: 0.9 % SODIUM CHLORIDE 1,000 ML IV SCH ×2 (14:16→21:41)
--- NOTE | 2018-01-25 14:42 | XRay Report ---
CLINICAL INFORMATION: Postoperative left hip replacement TECHNIQUE: AP pelvis. AP and lateral left hip COMPARISON: None. FINDINGS: Status post left total hip arthroplasty. Alignment appears anatomic. There is postsurgical soft tissue gas. Pelvis is negative. Mild degenerative joint disease in the right hip. There is degenerative disc disease in the lower lumbar spine. IMPRESSION: Status post left total hip arthroplasty Interpreted and Authenticated by: Antonio Owusu 01/25/18
[2018-01-25] MEDS: HYDROcodone/APAP 10/325MG TABLET PO PRN ×3 (15:26→21:39)
[2018-01-25] MEDS: 0.9 % SODIUM CHLORIDE 10 ML SYRINGE IV SCH ×2 (15:28→21:40)
[2018-01-25] MEDS: CARVEDILOL 6.25 MG TABLET PO SCH (17:06)
[2018-01-25] MEDS: INSULIN LISPRO 1 UNIT/0.01 ML UNIT SQ SCH ×2 (18:34→21:28)
[2018-01-25] MEDS: ceFAZolin 1 GM VIAL IV SCH (19:08)
[2018-01-25] MEDS: ASPIRIN 325 MG ENTERIC COATED TABLET PO SCH (21:36)
[2018-01-25] MEDS: DOCUSATE SODIUM 100 MG CAPSULE PO SCH (21:36)
[2018-01-25] MEDS: ATORVASTATIN 20 MG TABLET PO SCH (21:37)
[2018-01-25] MEDS: SENNOSIDES 1 TABLET PO SCH (21:37)
[2018-01-25] MEDS: POTASSIUM CHLORIDE 20 MEQ TABLET PO SCH (21:37)
[2018-01-25] MEDS: ALPRAZolam 0.5 MG TABLET PO SCH (22:27)
[2018-01-26] MEDS: HYDROcodone/APAP 10/325MG TABLET PO PRN ×4 (03:04→20:12)
[2018-01-26] MEDS: ceFAZolin 1 GM VIAL IV SCH (03:05)
[2018-01-26] MEDS: METHOCARBAMOL 750 MG TABLET PO PRN ×3 (03:48→18:20)
[2018-01-26] MEDS: 0.9 % SODIUM CHLORIDE 1,000 ML IV SCH ×3 (03:50→20:13)
[2018-01-26] MEDS: 0.9 % SODIUM CHLORIDE 10 ML SYRINGE IV SCH ×3 (06:02→20:15)
--- NOTE | 2018-01-26 07:08 | Discharge Summary ---
Providers - Providers Patient information: Note initiated : 01/26/18 at 7:06 am Service Date, if different from initiated Date: [] Patient: Kenyetta Young 73 y/o F admitted on 01/25/18 for Left Total Hip Arthroplasty. Chief Complaint: [POD #1 s/p left KAYLAN Patient doing well. Ambulating okay. Denies significant pain, numbness, tingling , CP, SOB or calf pain. No questions or concerns.] Discharge date: 01/27/18 Hospitalization Hospital course: Patient was brought into OR yesterday for left KAYLAN which went on without complication. She was admitted overnight for pain control and post op observation. She is doing well, ambulating okay. She would like to participate in PT today and stay over another night. She will d/c to home tomorrow and follow up in clinic in 10-14 days for post op appointment. Discharge diagnosis: hip osteoarthritis Exam - Exam Incision healing: Yes Incision draining: No Incision red: No Incision swollen: No Incision inflamed: No Clean and dry: Yes Weight bearing status: as tolerated Range of motion: full ankle/knee Ortho Discharge - KAYLAN - Patient Instructions Diet: Regular Diet Activity: activity as tolerated, weight bearing as tolerated Total Hip Protocol: Follow activity instructions as provided by Physical Therapy. Dressing Care: May shower in 2 days, Other (dermabond) Additional Dressing Instructions: leave dermabond patch in place until post op appointment. remove gauze for shower. Pat dry when done, replace gauze. - Follow Up Plan Follow Up Appointments: Huyen Davila PA-C [Physician Fleet Service Clerk] - 02/09/18 11:20 am Disposition: Home, Self-Care Prognosis: Good Rehab Potential: Good I certify that the patient requires SNF services: No Overall status at discharge: patient is progressing back to baseline - Orders For Discharge Prescriptions: Aspirin [Ecotrin] 325 mg PO BID #60 tab.ec HYDROcodone/APAP 10/325MG [Phil Campbell 10-325Mg] 1 - 2 tab PO Q4HP PRN #60 tab PRN Reason: Pain Level 3-6 Methocarbamol [Robaxin] 750 mg PO Q6HP PRN #45 tab PRN Reason: Muscle Spasm Additional Discharge Orders: Physical Therapy at Discharge - KAYLAN Location: None Selected Walker Location: None Selected Pending Studies Resuscitation Status Full Code Diet Regular Diet Start WedJan 25 1330 Hydrocodone Bitart/Acetaminophen (Phil Campbell 10/325mg) 0 tab PO Q4HP PRN PRN Reason: PAIN LEVEL 3-6 Last Admin: 01/26/18 03:04 Dose: 2 tab Admin: 01/25/18 21:39 Dose: 2 tab Admin: 01/25/18 17:06 Dose: 1 tab Admin: 01/25/18 15:26 Dose: 1 tab Alprazolam (Xanax) 0.5 mg PO HS SHAKA Last Admin: 01/25/18 22:27 Dose: 0.5 mg Aspirin (Ecotrin) 325 mg PO BID SHAKA Last Admin: 01/25/18 21:36 Dose: 325 mg Atorvastatin Calcium (Lipitor) 5 mg PO HS SHAKA Last Admin: 01/25/18 21:37 Dose: 5 mg Carvedilol (Coreg) 6.25 mg PO BIDCC SHAKA Last Admin: 01/25/18 17:06 Dose: 6.25 mg Diagnostic Test (Pha) (Accu-Chek) 1 each FS ACHS SHAKA Last Admin: 01/25/18 21:26 Dose: 1 each Admin: 01/25/18 18:30 Dose: 1 each Docusate Sodium (Colace) 100 mg PO BID SHAKA Last Admin: 01/25/18 21:36 Dose: 100 mg Sodium Chloride (Sodium Chloride 0.9%) 1,000 mls @ 125 mls/hr IV .Q8H SHAKA Last Admin: 01/26/18 03:50 Dose: Admin: 01/25/18 21:41 Dose: Infusion: 01/25/18 21:40 Dose: 0 mls/hr Admin: 01/25/18 14:16 Dose: 125 mls/hr Insulin Human Lispro (Humalog) 0 unit SQ ACHS [facility]; Protocol Last Admin: 01/25/18 21:28 Dose: Not Given Admin: 01/25/18 18:34 Dose: Not Given Methocarbamol (Robaxin) 750 mg PO Q6HP PRN PRN Reason: Muscle Spasm Last Admin: 01/26/18 03:48 Dose: 750 mg Potassium Chloride (Kdur) 20 meq PO HS SHAKA Last Admin: 01/25/18 21:37 Dose: 20 meq Senna (Senokot) 2 tab PO HS SHAKA Last Admin: 01/25/18 21:37 Dose: 2 tab Sodium Chloride (Saline Flush) 10 ml IV Q8 SHAKA Last Admin: 01/26/18 06:02 Dose: 10 ml Admin: 01/25/18 21:40 Dose: 10 ml Admin: 01/25/18 15:28 Dose: Not Given Throat Lozenges (Cepacol) 1 lozenge PO PRN PRN PRN Reason: Sore Throat Last Admin: 01/26/18 01:57 Dose: 1 lozenge Shift Summary 01/26/18 05:02 Shift Summary by Viviana Montana&Ox4. VSS on RA. Dressing to surgical site to left hip is CDI. Up with FWW and SBA. Experiences slight nausea when ambulating but subsides when she gets back in bed; denied the need for antiemetics. Medicated with 2 tablets Phil Campbell 10/ 325mg x2 and 1 tablet Robaxin 750mg x1 for pain. IV to left forearm is SL. Will update at bedside. Initialized on 01/26/18 05:02 - END OF NOTE
[2018-01-26] MEDS: OMEPRAZOLE 20 MG CAPSULE PO SCH (07:10)
[2018-01-26] MEDS: INSULIN LISPRO 1 UNIT/0.01 ML UNIT SQ SCH ×4 (07:18→20:03)
[2018-01-26] MEDS: CARVEDILOL 6.25 MG TABLET PO SCH ×2 (08:30→18:20)
[2018-01-26] MEDS ORDERED: MAGNESIUM OXIDE 400 MG TABLET PO SCH ×2 (09:00→21:00)
[2018-01-26] MEDS: HYDROCHLOROTHIAZIDE 25 MG TABLET PO SCH (09:30)
[2018-01-26] MEDS: LOSARTAN 50 MG TABLET PO SCH (09:30)
[2018-01-26] MEDS: DOCUSATE SODIUM 100 MG CAPSULE PO SCH ×2 (10:33→20:10)
[2018-01-26] MEDS: metFORMIN 500 MG TAB.XL.24H PO SCH (10:34)
[2018-01-26] MEDS: ASPIRIN 325 MG ENTERIC COATED TABLET PO SCH ×2 (10:42→20:10)
[2018-01-26] MEDS: SERTRALINE 50 MG TABLET PO SCH (10:47)
[2018-01-26] MEDS: ATORVASTATIN 20 MG TABLET PO SCH (20:11)
[2018-01-26] MEDS: POTASSIUM CHLORIDE 20 MEQ TABLET PO SCH (20:11)
[2018-01-26] MEDS: SENNOSIDES 1 TABLET PO SCH (20:12)
[2018-01-26] MEDS: ALPRAZolam 0.5 MG TABLET PO SCH (21:57)
[2018-01-27] MEDS: METHOCARBAMOL 750 MG TABLET PO PRN (00:22)
[2018-01-27] MEDS: HYDROcodone/APAP 10/325MG TABLET PO PRN (03:17)
[2018-01-27] MEDS: 0.9 % SODIUM CHLORIDE 1,000 ML IV SCH (04:16)
[2018-01-27] MEDS: 0.9 % SODIUM CHLORIDE 10 ML SYRINGE IV SCH (04:16)
--- NOTE | 2018-01-27 07:05 | Orthopedic Progress Note ---
Subjective Patient information: Note initiated : 01/27/18 at 7:03 am Service Date, if different from initiated Date: [] Patient: Kenyetta Young 73 y/o F admitted on 01/25/18 for Left Total Hip Arthroplasty. Chief Complaint: [] Interval history: doing well. some pain when up but improving Objective Vital signs: Vital Signs Temp Pulse Resp BP Pulse Ox 01/27/18 03:41 98.4 F 85 20 125/64 92 01/26/18 23:54 98.2 F 82 20 116/65 94 01/26/18 19:26 97.6 F 76 20 133/80 96 01/26/18 17:19 98.9 F 78 16 114/70 92 01/26/18 12:00 96.5 F L 76 16 108/67 100 01/26/18 08:15 108/60 01/26/18 08:00 97.4 F 76 16 90/53 100 Intake and Output 01/26/18 01/27/18 01/27/18 21:59 05:59 13:59 Intake Total 2440 / 2440 200 / 200 Output Total 850 / 850 450 / 450 Balance 1590 / 1590 -250 / -250 Intake: Oral 2440 / 2440 200 / 200 Output: Void Amount 850 / 850 450 / 450 Other: Meal cookie Percent of Meal Consumed 100% Feeding Ability Independent Urine Appearance Clear Clear Urine Color Straw Pale Urine Odor Normal Normal Weight 165 lb Intake & Output: Intake & Output 01/26/18 01/27/18 01/27/18 21:59 05:59 13:59 Intake Total 2440 / 2440 200 / 200 Output Total 850 / 850 450 / 450 Balance 1590 / 1590 -250 / -250 Weight 165 lb Intake: Oral 2440 / 2440 200 / 200 Output: Void Amount 850 / 850 450 / 450 Other: Meal cookie Percent of Meal Consumed 100% Feeding Ability Independent Urine Appearance Clear Clear Urine Color Straw Pale Urine Odor Normal Normal Incision: Yes healing Incision clean and dry: Yes Dressing: Yes clean, Yes dry, Yes intact Weight bearing status: full Neurological exam IM: Yes alert, Yes oriented X3, Yes motor sensory intact, Yes neurovascular intact Extremities exam IM: No calf tenderness, Yes Foot pink and warm, Yes neurovascular intact - Labs CBC & BMP: 01/27/18 04:20 Labs: Orthopedic Labs 01/25/18 09:35 PT 13.2 INR 1.0 01/27/18 01/26/18 04:20 04:51 Hgb 8.2 L 9.5 L Hct 24.4 L 28.5 L Assessment and Plan (1) Osteoarthritis of left hip pod 2 s/p jesus wbat pain control dvt prophylaxis home today Status: Chronic Qualifiers: Osteoarthritis type: primary Qualified Code(s): M16.12 - Unilateral primary osteoarthritis, left hip
[2018-01-27] MEDS: OMEPRAZOLE 20 MG CAPSULE PO SCH (07:34)
[2018-01-27] MEDS: metFORMIN 500 MG TAB.XL.24H PO SCH (07:34)
[2018-01-27] MEDS: INSULIN LISPRO 1 UNIT/0.01 ML UNIT SQ SCH (07:35)
[2018-01-27] MEDS: CARVEDILOL 6.25 MG TABLET PO SCH (07:35)
[2018-01-27] MEDS: DOCUSATE SODIUM 100 MG CAPSULE PO SCH (08:07)
[2018-01-27] MEDS: SERTRALINE 50 MG TABLET PO SCH (08:08)
[2018-01-27] MEDS: HYDROCHLOROTHIAZIDE 25 MG TABLET PO SCH (08:08)
[2018-01-27] MEDS: ASPIRIN 325 MG ENTERIC COATED TABLET PO SCH (08:08)
[2018-01-27] MEDS: LOSARTAN 50 MG TABLET PO SCH (08:14)
== END 2018-01-27 10:00 | disposition home or self-care (01) | DRG 470 ==
LOC: MEDSUR 09:01
PROVIDERS: ADMIT Orthopaedic Surgery Sports Medicine; ATTEND Orthopaedic Surgery Sports Medicine